=== PATIENT | female | born 1980 | race Caucasian/White ===

== ENCOUNTER → 2016-07-20 | Outpatient (REF) ==
[2016-08-27 15:47] LABS: CHLAMYDIA/TRACH by PCR Female NOT DETECTED
[2016-08-27 15:48] LABS: NEISSERIA GON by PCR Female DETECTED
[2016-08-27 16:03] LABS: CHLAMYDIA/TRACH by PCR Female INVALID; NEISSERIA GON by PCR Female INVALID
[2016-08-27 16:09] LABS: CHLAMYDIA/TRACH by PCR Female DETECTED; NEISSERIA GON by PCR Female NOT DETECTED
== END ==
LOC: COL.LAB 11:14
PROVIDERS: Pathology Anatomic Pathology & Clinical Pathology
DX: Z53.9 Procedure and treatment not carried out, unspecified reason (principal)

== ENCOUNTER → 2017-03-10 | Outpatient (CLI) | payer SELFPAY | LOC: COL.RAD → COL.CAR 12-15 13:42 → MC.RAD 09:47 | DX: Z01.89 Encounter for other specified special examinations (principal) | CPT/HCPCS: Q9967 ==